=== PATIENT | female | born 1990 | race Caucasian/White ===

== ENCOUNTER → 2020-07-25 | Outpatient (CLI) | payer OTHER ==
[~2020-07-25] MED LIST: BACTROBAN OINT22 GM EXT; DIFLUCAN150 MG PO; KEFLEX CAP 500500 MG PO; ZOFRAN 4 MG TAB4 MG PO
== END ==
LOC: KOH-I 13:30
DX: N39.0 Urinary tract infection, site not specified (principal); R33.9 Retention of urine, unspecified
CPT/HCPCS: 76775; 76857

== ENCOUNTER 2020-09-12 11:26 | Emergency (ER) | payer OTHER ==
[~2020-09-12 11:26] MED LIST changes: -BACTROBAN OINT22 GM EXT
[2020-09-12] MEDS ORDERED: BACTROBAN OINT22 GM EXT (12:02)
== END 2020-09-12 12:24 | disposition home or self-care (01) ==
LOC: ER1 11:26
DX: Z48.01 Encounter for change or removal of surgical wound dressing (principal); F17.210 Nicotine dependence, cigarettes, uncomplicated
CPT/HCPCS: 99281

== ENCOUNTER → 2021-03-23 | Outpatient (CLI) | payer OTHER ==
[~2021-03-23] MED LIST changes: +BACTROBAN OINT22 GM EXT
[2021-03-24 08:13] LABS: VITAMIN D, 25-HYDROXY 40.3 ng/mL (30.0-100.0)
[2021-03-24 12:14] LABS: RHEUMATOID ARTHRITIS FACTOR <10.0 IU/mL (0.0-13.9)
== END ==
LOC: LAB 09:29
PROVIDERS: Nurse Practitioner Family
DX: M79.641 Pain in right hand (principal); M79.10 Myalgia, unspecified site; M79.642 Pain in left hand; M79.671 Pain in right foot; M79.672 Pain in left foot; M25.50 Pain in unspecified joint; M20.5X2 Other deformities of toe(s) (acquired), left foot; M20.5X1 Other deformities of toe(s) (acquired), right foot
CPT/HCPCS: 36415; 73130; 73630; 82550; 82728; 83520; 83540; 83550; 84439; 84443; 85652; 86140; 86200; 86431